=== PATIENT | female | born 1970 | race Caucasian/White ===

== ENCOUNTER 2017-09-27 23:12 | Emergency (ER) | payer SELFPAY ==
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
[2017-09-28] MEDS ORDERED: MOTRIN PO ONE (02:16)
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
[2017-09-28 06:03] VITALS: BP 143/94
== END 2017-09-28 03:57 | disposition home or self-care (01) ==
LOC: ED 23:12
DX: S46.912A Strain of unspecified muscle, fascia and tendon at shoulder and upper arm level, left arm, initial encounter (principal); S13.4XXA Sprain of ligaments of cervical spine, initial encounter; I10 Essential (primary) hypertension; E11.9 Type 2 diabetes mellitus without complications; J45.909 Unspecified asthma, uncomplicated; V89.2XXA Person injured in unspecified motor-vehicle accident, traffic, initial encounter; Y93.89 Activity, other specified; Y92.89 Other specified places as the place of occurrence of the external cause; Y99.8 Other external cause status